=== PATIENT | female | born 1945 | race Caucasian/White ===

== ENCOUNTER 2017-06-19 16:18 | Emergency (ER) | payer OTHER ==
[2017-06-19 16:41] VITALS: TEMP 97.9
--- NOTE | 2017-06-19 17:32 | C.PDOC ---
History Of Present Illness 71 y/o female with Hx of DM presents to ED with complaints of weakness and dizziness for 3 days. Patient has not been evaluated for symptoms and also reports abdominal pain 7/10 for 1 month with associated urinary frequency and dysuria. Patient denies chest pain, sob on exertion, fever, chills or any other complaints at this time. Time Seen by Provider: 06/19/17 16:50 Chief Complaint (Nursing): Dizziness/Lightheaded History Per: Bridge Crew Member History/Exam Limitations: language barrier Onset/Duration Of Symptoms: Days Current Symptoms Are (Timing): Still Present Past Medical History Reviewed: Historical Data, Nursing Documentation, Vital Signs Vital Signs: Last Vital Signs Temp 97.9 F 06/19/17 16:34 Pulse 81 06/19/17 17:19 Resp 16 06/19/17 17:19 BP 166/69 H 06/19/17 17:19 Pulse Ox 98 06/19/17 18:26 Surgical History: Cholecystectomy Family History: States: No Known Family Hx - Social History Hx Alcohol Use: No Hx Substance Use: No - Immunization History Hx Tetanus Toxoid Vaccination: (unk) Hx Influenza Vaccination: No Hx Pneumococcal Vaccination: (unk) Review Of Systems Except As Marked, All Systems Reviewed And Found Negative. Constitutional: Negative for: Fever, Chills Cardiovascular: Negative for: Chest Pain Respiratory: Negative for: SOB with Excertion Gastrointestinal: Positive for: Abdominal Pain. Negative for: Nausea, Vomiting Genitourinary: Positive for: Dysuria, Frequency Skin: Negative for: Rash Neurological: Positive for: Weakness, Headache, Dizziness. Negative for: Numbness Physical Exam - Physical Exam Appears: Non-toxic, No Acute Distress Skin: Normal Color, Warm, Dry, No Rash Head: Atraumatic, Normacephalic Eye(s): bilateral: Normal Inspection, EOMI Oral Mucosa: Moist Neck: Normal ROM, Supple Chest: Symmetrical Cardiovascular: Rhythm Regular, No Murmur Respiratory: Normal Breath Sounds, No Rales, No Rhonchi, No Wheezing Gastrointestinal/Abdominal: Soft, Tenderness (diffuse ), No Guarding, No Rebound , Other (Obese abdomen) Extremity: No Pedal Edema Neurological/Psych: Oriented x3 ED Course And Treatment - Laboratory Results Result Diagrams: 06/19/17 18:20 06/19/17 18:20 O2 Sat by Pulse Oximetry: 98 (RA) Pulse Ox Interpretation: Normal Medical Decision Making Medical Decision Making: Plan: * Blood work, Ct scan abdomen Patient with mild hyperglycemia, weakness, dizziness. Not compliant with DM meds. CT and wnl Other labs/UA grossly normal Disposition Counseled Patient/Family Regarding: Studies Performed, Diagnosis, Need For Followup, Rx Given - Disposition Referrals: [facility] [Outside] Disposition: HOME/ ROUTINE Disposition Time: 19:16 Condition: IMPROVED Prescriptions: MetFORMIN [glucoPHAGE] 500 mg PO BID #30 tab Instructions: Diabetic Hyperglycemia (ED) Forms: General Discharge Instructions - POA Present On Arrival: None - Clinical Impression Clinical Impression: Dizziness, Hyperglycemia - Scribe Statement The provider has reviewed the documentation as recorded by the Scribe Shell Mendoza All medical record entries made by the Brandonibe were at my direction and personally dictated by me. I have reviewed the chart and agree that the record accurately reflects my personal performance of the history, physical exam, medical decision making, and the department course for this patient. I have also personally directed, reviewed, and agree with the discharge instructions and disposition. Physician Patient Turnover Patient Signed Over To: Torsten Barnard
[2017-06-19 18:08] VITALS: RESP 16
[2017-06-19 18:25] LABS: BASO % 0.9 % (0.0-2.0); EOS # 0.1 K/uL (0.0-0.7); HEMATOCRIT 36.1 % (34.0-47.0); LYMPH # 0.7 K/uL (1.0-4.3); LYMPH % 26.7 % (20.0-40.0); MEAN CELL VOLUME 76.9 fL (81.0-99.0); MEAN CORPUSCULAR HEMOGLOBIN 26.3 pg (27.0-31.0); MEAN CORPUSCULAR HGB CONC 34.1 g/dL (33.0-37.0); MEAN PLATELET VOLUME 8.1 fL (7.2-11.7); MONO # 0.2 K/uL (0.0-0.8); MONO % 8.1 % (0.0-10.0); RED CELL DISTRIBUTION WIDTH 14.8 % (11.5-14.5); WHITE BLOOD COUNT 2.7 K/uL (4.8-10.8)
[2017-06-19 18:32] LABS: CHLORIDE 105 mmol/L (98-107)
--- NOTE | 2017-06-19 18:32 | CT ---
PROCEDURE: CT Abdomen and Pelvis without intravenous contrast HISTORY: abd pain COMPARISON: None. TECHNIQUE: Axial and reformatted coronal and sagittal CT images of the abdomen and pelvis were obtained without IV or oral contrast administration.. Contrast Dose: 0 Radiation dose: Total exam DLP = 1013.7 seconds mGy-cm. This CT exam was performed using one or more of the following dose reduction techniques: Automated exposure control, adjustment of the mA and/or kV according to patient size, and/or use of iterative reconstruction technique. FINDINGS: LOWER THORAX: Ground-glass opacities at the lower lobes of uncertain etiology. No evidence of pneumonia or pleural effusion. LIVER: Pneumobilia is noted specially at the left lobe. The liver is mildly enlarged demonstrate mild diffuse increased density. GALLBLADDER AND BILE DUCTS: The gallbladder is not visualized. PANCREAS: The pancreas is small in size. SPLEEN: The spleen is wegwnu-in-ieqwixsims enlarged measures up to 16.8 centimeter in the AP diameter. ADRENALS: Unremarkable. No mass. KIDNEYS AND URETERS: Unremarkable. No hydronephrosis. No solid mass. VASCULATURE: Unremarkable. No aortic aneurysm. BOWEL: Diffuse colonic diverticulosis are seen without evidence of diverticulitis. No evidence of bowel obstruction. APPENDIX: Unremarkable. Normal appendix. PERITONEUM: Unremarkable. No free fluid. No free air. LYMPH NODES: Unremarkable. No enlarged lymph nodes. BLADDER: Unremarkable. REPRODUCTIVE: The uterus is slightly enlarged for the patient's age. No evidence of mass lesion at the adnexa. BONES: Moderate degenerative changes at the lower spine. OTHER FINDINGS: Mild fat stranding seen at the central portion of the abdomen around the mesenteric root of uncertain etiology. IMPRESSION: No evidence of nephrolithiasis or hydronephrosis. Hepato splenomegaly of uncertain etiology. Pneumobilia noted likely related to prior procedure in the biliary tree. Status post cholecystectomy. Colonic diverticulosis without evidence of diverticulitis.
[2017-06-19 18:33] LABS: POTASSIUM 4.1 mmol/L (3.6-5.2); SODIUM 139 mmol/L (132-148)
[2017-06-19 18:35] LABS: BILIRUBIN,TOTAL 0.8 mg/dL (0.2-1.3); CARBON DIOXIDE 24 mmol/L (22-30); GFR AFRICAN-AMERICAN > 60
[2017-06-19 18:36] LABS: ALB/GLOB RATIO 1.3 (1.0-2.1); ALKALINE PHOSPHATASE 80 U/L (38-126); ALT/SGPT 27 U/L (9-52); AST/SGOT 18 U/L (14-36); BLOOD UREA NITROGEN 23 mg/dL (7-17); CALCIUM 8.9 mg/dl (8.6-10.4); GLUCOSE,RANDOM 255 mg/dL (65-105); TOTAL PROTEIN 7.4 g/dL (6.3-8.3)
[2017-06-19 19:01] LABS: RBC URINE < 1 /hpf (0-3); URINE BACTERIA MOD (<OCC); URINE BILIRUBIN NEGATIVE (NEGATIVE); URINE BLOOD NEGATIVE (NEGATIVE); URINE COLOR Yellow (YELLOW); URINE GLUCOSE (UA) 3+ mg/dL (Normal); URINE KETONE NEGATIVE (NEGATIVE); URINE LEUKOCYTE ESTERASE NEG Leu/uL (Negative); URINE PROTEIN NEGATIVE (NEGATIVE); URINE UROBILINOGEN NORMAL mg/dL (0.2-1.0); WBC URINE 1 /hpf (0-5)
[2017-06-19 19:30] VITALS: BP 142/74; PULSE 80; O2SAT 97
--- NOTE | 2017-06-20 08:42 | RAD ---
PROCEDURE: CHEST RADIOGRAPH, 1 VIEW HISTORY: Abdominal pain COMPARISON: None available. FINDINGS: LUNGS: There are low lung volumes. There is bibasilar atelectasis. No focal consolidation. PLEURA: No pneumothorax or pleural fluid seen. CARDIOVASCULAR: Normal. OSSEOUS STRUCTURES: No significant abnormalities. VISUALIZED UPPER ABDOMEN: Normal. OTHER FINDINGS: None. IMPRESSION: No acute findings.Low lung volumes may be related to poor inspiratory effort.
--- NOTE | 2017-06-20 09:01 | RAD ---
HISTORY: abdominal pain COMPARISON: No prior. FINDINGS: BOWEL: [id number] constipation. No evidence of small bowel obstruction. BONES: Degenerative changes are noted at the lower spine. OTHER FINDINGS: None. IMPRESSION: [id number] constipation.
== END 2017-06-19 19:31 | disposition home or self-care (01) ==
LOC: C.ER 16:18
DX: E11.65 Type 2 diabetes mellitus with hyperglycemia (principal); R42 Dizziness and giddiness; Z91.14 Patient's other noncompliance with medication regimen

== ENCOUNTER 2017-10-24 02:57 | Emergency (ER) | payer OTHER ==
[2017-10-24 03:17] VITALS: RESP 20
[2017-10-24] MEDS ORDERED: Sodium Chloride 0.9% 1,000 ML IV ONE (03:26)
[2017-10-24] MEDS ORDERED: Sodium Chloride 0.9% 1,000 ML ONE (03:38)
[2017-10-24 03:41] LABS: BASO # 0.1 K/uL (0.0-0.2); BASO % 2.1 % (0.0-2.0); EOS # 0.1 K/uL (0.0-0.7); EOS % 4.1 % (0.0-4.0); MEAN CORPUSCULAR HEMOGLOBIN 26.5 pg (27.0-31.0); MEAN CORPUSCULAR HGB CONC 33.9 g/dL (33.0-37.0); MEAN PLATELET VOLUME 9.1 fL (7.2-11.7); MONO # 0.2 K/uL (0.0-0.8); MONO % 7.9 % (0.0-10.0); NEUT # 1.2 K/uL (1.8-7.0); NEUT % 45.9 % (50.0-75.0); NRBC % 0.1 % (0.0-2.0); RBC 4.91 Mil/uL (3.80-5.20); RED CELL DISTRIBUTION WIDTH 14.8 % (11.5-14.5); WHITE BLOOD COUNT 2.6 K/uL (4.8-10.8)
[2017-10-24 03:46] LABS: SQUAMOUS EPITHIAL 1 /hpf (0-5); URINE BACTERIA RARE (<OCC); URINE BILIRUBIN NEGATIVE (NEGATIVE); URINE BLOOD NEGATIVE (NEGATIVE); URINE CLARITY Clear (Clear); URINE COLOR Straw (YELLOW); URINE GLUCOSE (UA) NORMAL (Normal); URINE LEUKOCYTE ESTERASE NEG Leu/uL (Negative); URINE NITRATE NEGATIVE (NEGATIVE); URINE PROTEIN NEGATIVE (NEGATIVE); URINE UROBILINOGEN NORMAL mg/dL (0.2-1.0)
[2017-10-24 03:54] LABS: ABG ALLEN TEST POS; ARTERIAL BLOOD GAS HCO3 21.2 mmol/L (21-28); ARTERIAL BLOOD GAS HEMOGLOBIN 10.7 g/dL (11.7-17.4); ARTERIAL BLOOD GAS O2 SAT 99.5 % (95-98); ARTERIAL BLOOD GAS PCO2 24 mm/Hg (35-45); ARTERIAL BLOOD GAS PH 7.47 (7.35-7.45); ARTERIAL BLOOD GAS PO2 96 mm/Hg (80-100); ARTERIAL BLOOD GAS TCO2 18.2 mmol/L (22-28)
[2017-10-24 03:57] LABS: ALB/GLOB RATIO 1.2 (1.0-2.1); ALBUMIN 4.4 g/dL (3.5-5.0); ALT/SGPT 19 U/L (9-52); AST/SGOT 18 U/L (14-36); BLOOD UREA NITROGEN 19 mg/dL (7-17); CALCIUM 9.5 mg/dl (8.6-10.4); GFR AFRICAN-AMERICAN > 60; GFR NON-AFRICAN AMERICAN > 60
--- NOTE | 2017-10-24 04:30 | C.PDOC ---
History Of Present Illness 72 year old female presents to the ER with a complaint of sudden onset of pain and body aches that began approximately 2 hours ago. Denies fever, diarrhea, vomiting, or dysuria. Chief Complaint (Nursing): Flu-like Symptoms History Per: Patient History/Exam Limitations: no limitations Onset/Duration Of Symptoms: Hrs Current Symptoms Are (Timing): Still Present Location Of Pain: Diffuse Myalgias Sick Contacts (Context): None Associated Symptoms: denies: Fever, Vomiting, Diarrhea, Other (Dysuria) Ear Symptoms: Bilateral: None Recent travel outside of the [place]: No Past Medical History Reviewed: Historical Data, Nursing Documentation, Vital Signs Vital Signs: Last Vital Signs Temp 96.3 F L 10/24/17 03:12 Pulse 74 10/24/17 03:12 Resp 20 10/24/17 03:12 BP 190/90 H 10/24/17 03:12 Pulse Ox 99 10/24/17 04:56 Surgical History: Cholecystectomy Family History: States: Unknown Family Hx - Social History Hx Alcohol Use: No Hx Substance Use: No - Immunization History Hx Tetanus Toxoid Vaccination: No (unk) Hx Influenza Vaccination: No Hx Pneumococcal Vaccination: No (unk) Review Of Systems Constitutional: Negative for: Fever Cardiovascular: Negative for: Chest Pain, Palpitations Respiratory: Negative for: Shortness of Breath Gastrointestinal: Negative for: Vomiting, Diarrhea Genitourinary: Negative for: Dysuria Musculoskeletal: Positive for: Other (Body aches) Physical Exam - Physical Exam Appears: Other (Anxious, Slightly hyperventilating) Skin: Normal Color, Warm, Dry Head: Atraumatic, Normacephalic Eye(s): bilateral: Normal Inspection Oral Mucosa: Moist Neck: Normal, Supple Chest: Symmetrical, No Tenderness Cardiovascular: Rhythm Regular Respiratory: Normal Breath Sounds, No Rales, No Rhonchi, No Wheezing Gastrointestinal/Abdominal: Soft, No Tenderness Neurological/Psych: Oriented x3, Normal Speech ED Course And Treatment - Laboratory Results Result Diagrams: 10/24/17 03:37 10/24/17 03:37 O2 Sat by Pulse Oximetry: 99 (Room air) Pulse Ox Interpretation: Normal Progress Note: EKG, blood work, urinalysis, and flu swab ordered. Ativan, toradol, tylenol, and IV fluids administered. Disposition Counseled Patient/Family Regarding: Diagnosis - Disposition Referrals: Ana Espinoza MD [Staff Provider] - Disposition: HOME/ ROUTINE Disposition Time: 04:53 Condition: STABLE Additional Instructions: increased fluids by mouth Prescriptions: Naproxen 375 mg PO TIDPC #20 tablet Instructions: Hyperventilation (ED), Viral Syndrome (ED) Forms: [employer] (Kyrgyz) - POA Present On Arrival: None - Clinical Impression Clinical Impression: Viral syndrome, Hyperventilation - Scribe Statement The provider has reviewed the documentation as recorded by the Scribsimón Mcdonald All medical record entries made by the Brandonibsimón were at my direction and personally dictated by me. I have reviewed the chart and agree that the record accurately reflects my personal performance of the history, physical exam, medical decision making, and the department course for this patient. I have also personally directed, reviewed, and agree with the discharge instructions and disposition.
[2017-10-24] MEDS ORDERED: Naproxen 550 mg Tab PO STA (05:25)
[2017-10-24] MEDS ORDERED: Naproxen 550 mg Tab PO ONE (05:32)
[2017-10-24 05:38] VITALS: BP 169/77; PULSE 84; TEMP 98.2; O2SAT 100
--- NOTE | 2017-10-25 12:35 | CARD ---
APPROVED REPORT EKG Measurement Heart [id number] <Conclusion> Normal sinus rhythm Left axis deviation Septal infarct, age undetermined Abnormal ECG
== END 2017-10-24 05:49 | disposition home or self-care (01) ==
LOC: C.ER 02:57
DX: B34.9 Viral infection, unspecified (principal); R06.4 Hyperventilation
CPT/HCPCS: 80053; 81001; 82803; 85025; 87804; 93005; 96361; 96374; 96375; 99284; J1885; J2060; J7040